=== PATIENT | female | born 1965 | race Two or more races ===

== ENCOUNTER 2016-10-05 09:33 | Day surgery (SDC) | payer OTHER ==
[2016-10-04 19:04] VITALS: BMI 27.6
[2016-10-05] MEDS ORDERED: LIDOCAINE 1%-EPI 1:100,000 30 ML MDV IJ ONE (10:44)
[2016-10-05] MEDS ORDERED: BUPIVACAINE HCL/PF 0.5% (5MG/ML) 10 ML VIAL ONE (10:44)
[2016-10-05] MEDS ORDERED: MIDAZOLAM HCL 2 MG/2 ML SINGLE DOSE VIAL ONE (11:28)
[2016-10-05] MEDS ORDERED: LIDOCAINE HCL/PF 2% SDV 5ML VIAL ONE (11:30)
[2016-10-05] MEDS ORDERED: DEXAMETHASONE SOD PHOSPHATE 4 MG/1 ML VIAL ONE (11:50)
[2016-10-05] MEDS ORDERED: ONDANSETRON 4 MG/2 ML VIAL ONE (11:50)
[2016-10-05] MEDS ORDERED: KETOROLAC TROMETHAMINE 30 MG/1 ML VIAL ONE (11:50)
--- NOTE | 2016-10-05 12:01 | HP ---
[facility] - Chief Complaint Chief Complaint: left knee pain - Past Medical History Allergies/Adverse Reactions: Allergies Allergy/AdvReac Type Severity Reaction Status Date / Time shellfish derived Allergy Difficulty Verified 10/05/16 10:09 Breathing,swelling shrimp Allergy Difficulty Verified 10/05/16 10:09 Breathing ...LMP Comment: 1 year ago - Current Medications Current Medications: Home Medications Medication Instructions Recorded Fluticasone/Salmeterol [Advair 1 each IH BID 10/04/16 250-50 Diskus] Ibuprofen/Famotidine [Duexis 1 each PO PRN PRN 10/04/16 800-26.6 mg Tablet] Oxycodone HCl/Acetaminophen 1 - 2 tab PO Q6H #50 tab MDD 8 10/05/16 [Percocet 5-325 mg Tablet -] [facility]ellite Physical Exam - Physical Examination Vital Signs: Vital Signs Period Temp Pulse Resp BP Sys/Garcia Pulse Ox Last 24 Hr 97.8 F 74 16 123/67 99-99 General Appearance: Well Nourished, Well Developed, Alert & Oriented x3 ENT: Clear Lung: Normal air movement Heart: Regular rate & rhythm Extremities: Other (left knee- + swelling, + ttp, decr rom, + mcmurrays, nvi MRI + mt) Neurological: Intact, Alert, Oriented Satellite Impression/Plan - Impression/Plan Impression: left knee internal derangement Operative Procedure: left knee arthroscopy Date to be Performed: 10/05/16
--- NOTE | 2016-10-05 12:10 | OP ---
Operative Note - Note: Operative Date: 10/05/16 (riky) Pre-Operative Diagnosis: left knee internal derangement Operation: left knee arthroscopy with PMM, PLM Post-Operative Diagnosis: Same as Pre-op Surgeon: Alexander Hein Anesthesiologist/CONDITIONER TENDER: Sarmad Soto Anesthesia: General, Local Specimens Removed: shavings Estimated Blood Loss (mls): 5 Operative Report Dictated: Yes
[2016-10-05] MEDS ORDERED: ONDANSETRON 4 MG/2 ML VIAL IVPUSH PRN (14:44)
[2016-10-05] MEDS ORDERED: oxyCODONE HCL 5 MG TABLET PO PRN (14:44)
[2016-10-05] MEDS ORDERED: PROMETHAZINE HCL 25 MG/1 ML VIAL IVPUSH PRN (14:44)
[2016-10-05] MEDS ORDERED: LACTATED RINGERS SOLUTION 1,000 ML IV SCH (14:45)
[2016-10-05 15:22] VITALS: BP 128/72; PULSE 78; TEMP 97.9
--- NOTE | 2016-10-05 18:08 | OP ---
DATE OF OPERATION: PREOPERATIVE DIAGNOSIS: Left medial meniscus tear. POSTOPERATIVE DIAGNOSIS: Left medial meniscus tear plus lateral meniscus tear. PROCEDURE: Arthroscopy left knee with partial medial and lateral meniscectomy. SURGEON: Alexander Hein MD ANESTHESIA: General with LMA. CLOSURES: 4-0 nylon. COMPLICATIONS: None. CONDITION: To recovery room in stable condition. DESCRIPTION OF PROCEDURE: The patient was taken to the operating room on October 05, 2016. LMA anesthesia was administered by the anesthesiologist. The left lower extremity was prepped and draped in the usual sterile fashion. Superolateral and mediolateral infrapatellar portal sites were infiltrated with 1% Xylocaine with epinephrine. Superolateral port was made with 15 blade and blunt trocar. The knee was aspirated and inflated with a cocktail of 10 mL of 1% Xylocaine, 10 mL of 0.5% Marcaine, and 20 mL of arthroscopic saline. Medial and lateral infrapatellar ports were then made with a 15 blade and blunt trocar. The scope was placed in the lateral infrapatellar port up to suprapatellar pouch. The pouch was visualized to be clean. The medial and lateral gutters were visualized to be clean. The undersurface of the patella and trochlea were visualized to be intact. With valgus stress on the knee, the medial compartment was entered. Medial meniscus was visualized and probed and found to have a complex tear of the posterior horn. This was debrided back to normal, stable meniscal tissue using a meniscal biter and arthroscopic shaver. The medial femoral condyle was run and found to be intact as was the medial tibial plateau. At 90 degrees, the ACL was visualized and probed and found to be intact. In figure-4 position lateral compartment was entered. Lateral meniscus was found to have a horizontal cleavage tear of its midportion. This was debrided back to smooth and stable meniscal tissues with meniscal biter and arthroscopic shaver. Lateral and femoral condyles were run and found to be intact as was the lateral tibial plateau. The knee was irrigated out with copious amounts of irrigation. The port was closed using 4-0 nylon. Prior to closure, 20 mL of 0.5% Marcaine was infused into the knee for postoperative analgesia. A sterile pressure dressing was placed over the knee. The patient was awakened from anesthesia and transferred to recovery in stable condition with no complications. Estimated blood loss negligible. ALEXANDER HEIN M.D. [id number]
== END 2016-10-05 14:35 | disposition home or self-care (01) ==
LOC: FASU 09:33
PROVIDERS: ATTEND Orthopaedic Surgery
PROC: 0SBD4ZZ Excision of Left Knee Joint, Percutaneous Endoscopic Approach (ICD-10-PCS; 2016-10-05)
PROC: 0SBD4ZZ Excision of Left Knee Joint, Percutaneous Endoscopic Approach (ICD-10-PCS; principal; 2016-10-05 11:50)
DX: S83.232A Complex tear of medial meniscus, current injury, left knee, initial encounter (principal); S83.282A Other tear of lateral meniscus, current injury, left knee, initial encounter; X58.XXXA Exposure to other specified factors, initial encounter; Y93.9 Activity, unspecified; Y92.9 Unspecified place or not applicable
CPT/HCPCS: 94760